=== PATIENT | female | born 1945 ===

== ENCOUNTER 2021-10-28 08:30 | Inpatient (IN) | payer OTHER ==
[2021-10-28] MEDS ORDERED: ZOLOFT25 MG PO (10:46)
[2021-10-28] MEDS ORDERED: ARICEPT5 MG PO (10:46)
[2021-10-28] MEDS ORDERED: VITAMIN C100 MG PO (10:47)
[2021-10-28] MEDS ORDERED: D3 + K2 DOTS 11 EACH PO (10:47)
[2021-10-28] MEDS ORDERED: NAMENDA5 MG PO (10:47)
[2021-10-28] MEDS ORDERED: ROSUVASTATIN CAL5 MG PO (10:47)
[2021-10-28] MEDS ORDERED: B12 ACTIVE1000 MCG PO (10:48)
[2021-11-05] MEDS ORDERED: DUI500 PO (17:15)
[2021-11-05] MEDS ORDERED: ELIQUIS2.5 MG PO (17:15)
[2021-11-05] MEDS ORDERED: PERCOCET 5-3251 EACH PO (17:15)
== END 2021-11-05 21:08 | DRG 470 ==
LOC: O/R 11-03 05:38 → SURH 11-03 05:38
PROVIDERS: ADMIT Orthopaedic Surgery; ATTEND Orthopaedic Surgery
PROC: 0SRC0J9 Replacement of Right Knee Joint with Synthetic Substitute, Cemented, Open Approach (ICD-10-PCS; principal; 2021-11-03 18:30)
DX: M17.11 Unilateral primary osteoarthritis, right knee (principal); D62 Acute posthemorrhagic anemia; M22.11 Recurrent subluxation of patella, right knee; E66.9 Obesity, unspecified; M81.0 Age-related osteoporosis without current pathological fracture; G30.8 Other Alzheimer's disease; F02.80 Dementia in other diseases classified elsewhere, unspecified severity, without behavioral disturbance, psychotic disturbance, mood disturbance, and anxiety